=== PATIENT | female | born 1980 | race Caucasian/White ===

== ENCOUNTER → 2021-02-14 12:42 | Outpatient (CLI) | payer OTHER, SELFPAY ==
--- NOTE | ~2021-02-14 | US_ITS ---
US transvaginal DATE: 02/14/2021 13:08 INDICATION: Abnormal uterine bleeding TECHNIQUE: Real-time imaging via transvaginal approach COMPARISON: 01/16/2019 pelvic ultrasound examination FINDINGS: The uterus measures 6.3 cm height, 3.1 cm AP and 3.5 cm transverse dimension. The central e ndometrial echo complex measures 4 mm, normal. The ovaries each contain cysts, the largest on the right measuring up to 2 cm, the largest on the lef t approximately 11.8 mm. There is vascular flow to both ovaries. The right ovary measures 3.2 x 2.7 x 2.4 cm. The left ovary measures 3.4 x 1.5 x 3.3 cm. Minimal free fluid is evident in the cul-de-sac. IMPRESSION: Bilateral ovarian cysts, minimal free fluid in the cul-de-sac Reviewed, dictated and finalized at [facility]. Reviewed, dictated and finalized at location [facility].
== END ==
PROVIDERS: Visit Provider Obstetrics & Gynecology Gynecology
DX: N93.8 Other specified abnormal uterine and vaginal bleeding (principal); N83.201 Unspecified ovarian cyst, right side; N83.202 Unspecified ovarian cyst, left side
CPT/HCPCS: 76830

== ENCOUNTER 2021-02-14 14:04 | Outpatient (CLI) | payer OTHER, SELFPAY ==
--- NOTE | 2021-02-14 14:08 | ECG_ITS ---
Measurements Intervals Serafina Rate: 76 P: 58 KS: 169 QRS: 76 QRSD: 85 T: 69 QT: 380 QTc: 428 Interpretive Statements SINUS RHYTHM VENTRICULAR TRIGEMINY ABNORMAL ECG Electronically Signed On 02-14-2021 14:47:56 CDT by Chavez Lees D.O.
== END 2021-02-14 14:05 | disposition home or self-care (01) ==
PROVIDERS: PCP Internal Medicine; Visit Provider Anesthesiology
DX: Z01.818 Encounter for other preprocedural examination (principal); I10 Essential (primary) hypertension; R94.31 Abnormal electrocardiogram [ECG] [EKG]
CPT/HCPCS: 93005

== ENCOUNTER → 2021-02-21 00:09 | Outpatient (CLI) | payer OTHER, SELFPAY ==
[2021-02-21 17:44] LABS: SARS-CoV-2 RNA PCR Negative
== END ==
PROVIDERS: PCP Internal Medicine; Visit Provider Obstetrics & Gynecology Gynecology
DX: Z01.812 Encounter for preprocedural laboratory examination (principal); Z20.822 Contact with and (suspected) exposure to COVID-19
CPT/HCPCS: C9803; U0003; U0005

== ENCOUNTER 2021-02-24 01:19 | Day surgery (SDC) | payer OTHER, SELFPAY ==
[2021-02-12 15:27] VITALS: BMI 27.3
--- NOTE | 2021-02-24 07:40 | WPDHPUPDATE1 ---
History and Physical Update Update Date/Time: 02/24/21 07:40 History and Physical has been reviewed, including an updated exam of the patient. There are NO changes in the patient's condition. Risks, benefits, and alternatives have been discussed and questions answered. Patient agrees to proceed with procedure.
--- NOTE | 2021-02-24 07:40 | PM.HPGS ---
History of Present Illness History of Present Illness Consent: Risks, benefits, and alternatives have been discussed and questions answered. Patient agrees to proceed with procedure. Chief complaint: Abnormal Uterine Bleeding Narrative: Cristina Ruiz is a 40 year old female s/p endometrial ablation with prolonged spotting last 3 months. Patient with more than 10 days of bleeding per month. Recommend further work up with hysteroscopy and D&C. Risks of infection, bleeding, perforation, and inability to enter cavity discussed with patient. She agrees to proceed. Review of Systems Review of Systems: Narrative: not repeated day of surgery; patient states no changes in status [facility] Past Medical History Medical History (Updated 02/24/21 @ 08:23 by Rosa Burt MD) Anxiety Crohn's disease Eczema Hepatitis C 2018 TREATED WITH HARVONI, STATES NEG TESTS HTN (hypertension) Surgical History Surgical History (Updated 02/24/21 @ 08:23 by Rosa Burt MD) S/P endometrial ablation S/P LEEP S/P surgical removal of pilonidal cyst S/P tonsillectomy S/P tubal ligation Social History Social History Smoking status: Never smoker Substance use: never Gender identity (if verbalized by the patient): Female Spiritual care concerns: No Meds Home Medications and Allergies Home Medications Medication Instructions Recorded Confirmed Type Vitamin D2 1,000 mg PO DAILY 11/09/19 02/12/21 History ascorbic acid (vitamin C) [Vitamin 1 g PO DAILY 11/09/19 02/12/21 History C] buspirone 7.5 mg PO DAILY 11/09/19 02/12/21 History lisinopril 5 mg PO HS 11/09/19 02/12/21 History loratadine [Claritin] 10 mg PO DAILY 02/12/21 02/12/21 History Allergies Allergy/AdvReac Type Severity Reaction Status Date / Time erythromycin base AdvReac Mild Nausea Verified 11/20/19 06:45 Exam Const: General: healthy appearing and comfortable : External Female Exam: normal external appearance Speculum Exam - Vagina: normal appearance of the vagina Speculum Exam - Cervix: normal appearance of the cervix Bimanual exam- vagina & uterus: normal bimanual exam Bimanual Exam- Adnexa, other: normal adnexae Assessment and Plan Assessment and plan (1) Menorrhagia: Code(s): N92.0 - Excessive and frequent menstruation with regular cycle Status: Acute Assessment and Plan: plan to proceed with hysteroscopy with D&C
--- NOTE | 2021-02-24 09:04 | WPDANESEPPF ---
Anes - Initial Pre Proc Eval Procedure: Operation Date: 02/24/21 10:45 Proposed Procedures p Hysteroscopy Dilation and Curettage - Rosa Burt MD Date/Time: 02/24/21 09:04 Surgeon: Rosa Burt MD Pre Op Diagnosis: Abnormal Uterine Bleeding Patient Data Age: 40 Gender: F Height: 1.73 m Weight: 81.7 kg Allergies Allergy/AdvReac Type Severity Reaction Status Date / Time erythromycin base AdvReac Mild Nausea Verified 02/24/21 09:09 Home Medications Medication Instructions Recorded Confirmed Type Vitamin D2 1,000 mg PO DAILY 11/09/19 02/24/21 History ascorbic acid (vitamin C) [Vitamin 1 g PO DAILY 11/09/19 02/24/21 History C] buspirone 7.5 mg PO DAILY 11/09/19 02/24/21 History lisinopril 5 mg PO HS 11/09/19 02/24/21 History loratadine [Claritin] 10 mg PO DAILY 02/12/21 02/24/21 History Patient hx anesthesia problems: none Family hx anesthesia problems: none PMFSH Past Medical History Medical History (Updated 02/24/21 @ 08:23 by Rosa Burt MD) Anxiety Crohn's disease Eczema Hepatitis C 2018 TREATED WITH AMAYA, STATES NEG TESTS HTN (hypertension) Surgical History Surgical History (Updated 02/24/21 @ 08:23 by Rosa Burt MD) S/P endometrial ablation S/P LEEP S/P surgical removal of pilonidal cyst S/P tonsillectomy S/P tubal ligation Social History Social History Smoking status: Never smoker Substance use: never Gender identity (if verbalized by the patient): Female Spiritual care concerns: No Anes - Eval Final PreProcedure Day of Procedure 02/24/21 09:04 Patient weight: overweight Heart: regular rate and rhythm Lungs: clear to auscultation and normal air movement Airway: Mallampati scale class II Neurological: alert and oriented Last oral intake: >/= 8 hours ASA classification: III Emergent: no Anesthetic plan: proceed Anesthesia type and monitoring: general GIVS and LMA Informed Consent: The patient's anesthetic plan and its attendant risks and benefits were discussed with the patient/family/POA. Questions were solicited and answers provided to the satisfaction of the patient/family/POA.
[2021-02-24 09:26] VITALS: BP 113/78; PULSE 90; RESP 14; TEMP 36.6; O2SAT 100
[2021-02-24] MEDS: SCOPOLAMINE 1.5 MG PATCH TRANSDERM (09:48)
[2021-02-24] MEDS: LACTATED RINGERS 1,000 ML 30 ML IV CONT (09:49)
[2021-02-24] MEDS: ACETAMINOPHEN 500 MG TABLET 1000 MG PO (09:49)
[2021-02-24] MEDS: KETOROLAC 30 MG/ML VIAL (*BKC) IV PUSH (10:36)
--- NOTE | 2021-02-24 10:44 | P.OP_ITS ---
Procedure Note - Detailed Date of procedure: 02/24/21 Pre-op diagnosis: Abnormal Uterine Bleeding Post-op diagnosis: same Procedure performed: D&C hysteroscopy Description of procedure: The patient is taken to the operating room and placed under anesthesia in the dorsal lithotomy position. She was prepped and draped in the usual sterile fashion. Mcrae Helena speculum was placed in the vagina and the cervix is grasped on the anterior lip with a tenaculum. The cervix is injected in each quadrant with 1% lidocaine and the sound was attempted to be placed. There is a minimal indentation where the cervical os is located the os Finders are attempted to be used in not successful. The small dilator was attempted to be used and not successful. An 11 blade scalpel was used to kelby-cross the cervical opening. The os Finders are then used and the external os is able to be opened. The internal cervical os is also noted to be very stenotic and with difficult is dilated with Hegars. The diagnostic hysteroscope was placed and the pocket is noted to be very scarred and suspected to be a false passage. The hysteroscope was slowly removed and an additional passage was noted anterior to the current false passage. The hysteroscope was removed the sound is used and able to enter the upper passage which sounds to 7cm. The cervix was then serially dilated anteriorly using the Hegars. The diagnostic hysteroscope was replaced and this passage also appears very scarred but appears to be more likely the endometrial cavity. No abnormalities are noted other than scarring consistent with prior ablation. The hysteroscope was removed the small curette is used to angle anteriorly and curette the endometrium until a good uterine cry was noted in all areas. Minimal materials obtained consistent with the visual appearance. All instruments are removed and the patient was awakened from anesthesia taken to recovery room. Sponge, instrument, and needle counts are correct per the OR staff. Anesthesia: MAC and local Surgeon: Rosa Burt MD Estimated blood loss (mL): 5 Drains: No Packing: No Pathology: yes (endometrial curettings) Complications: No immediate complications Condition: stable Disposition: PACU Findings: external cervical stenosis and internal cervical stenosis scarred endometrium
[2021-02-24 10:47] VITALS: BP 123/76; PULSE 71; RESP 16; O2SAT 99
[2021-02-24 11:15] VITALS: BP 130/90; PULSE 80; RESP 16; O2SAT 99
[2021-02-24 11:40] VITALS: BP 125/81; PULSE 76; RESP 20
== END 2021-02-24 11:45 | disposition home or self-care (01) ==
PROVIDERS: PCP Internal Medicine; Visit Provider Obstetrics & Gynecology Gynecology
PROC: 0U5B8ZZ Destruction of Endometrium, Via Natural or Artificial Opening Endoscopic (ICD-10-PCS; CPT 58563; principal; 2021-02-24 10:45)
DX: N92.0 Excessive and frequent menstruation with regular cycle (principal); N85.8 Other specified noninflammatory disorders of uterus; F41.9 Anxiety disorder, unspecified; K50.90 Crohn's disease, unspecified, without complications; L30.9 Dermatitis, unspecified; Z86.19 Personal history of other infectious and parasitic diseases; I10 Essential (primary) hypertension
CPT/HCPCS: 58558; 88305; 93005; A9270; C9803; J1885; J2250; J2704; J3010; J7030; J7120; U0003; U0005

== ENCOUNTER → 2021-10-09 07:41 | Outpatient (CLI) | payer OTHER, SELFPAY ==
--- NOTE | ~2021-10-09 | MMUS_ITS ---
EXAMINATION: MM diagnostic bella BI w linda, US breast BI complete HISTORY: Bilateral breast lumps TECHNIQUE: ML, MLO and craniocaudal 3-D tomosynthesis images of both breasts were performed and synth etic 2-D images were generated. CAD analysis was submitted and interpreted. High resolution complete bilateral breast ultrasound including all 4 quadrants and subareolar area of was performed. COMPARISON: 12/13/2017 bilateral diagnostic mammography and limited left breast ultrasound BREAST PARENCHYMAL COMPOSITION: There are scattered areas of fibroglandular density. FINDINGS: MAMMOGRAPHIC FINDINGS: No suspicious mass or architectural distortion, malignant calcification, skin thickening or retractio n or significant new or developing density is detected. ULTRASOUND: In the right breast at 4:00 8 cm from the nipple at the area of palpable complaint of breast lump the re is a superficial approximately 4 x 6.5 x 9.1 mm parallel circumscribed hypoechoic area without int ernal vascularity or posterior shadowing. This appears benign. No suspicious mass or shadowing of either breast is detected. IMPRESSION: 1. No mammographic evidence of malignancy 2. Routine mammographic screening is recommended. BI-RADS Category 2: Benign finding(s). Reviewed, dictated and finalized at location A. IT COLLECTIONS CLERK IMPRESSION: 1. No mammographic evidence of malignancy 2. Routine mammographic screening is recommended. BI-RADS Category 2: Benign finding(s).
== END ==
PROVIDERS: PCP Internal Medicine; Visit Provider Nurse Practitioner
DX: N63.24 Unspecified lump in the left breast, lower inner quadrant (principal)
CPT/HCPCS: 76641; 77062; 77066; G0279

== ENCOUNTER 2021-10-30 07:54 | Outpatient (CLI) | payer OTHER, SELFPAY ==
--- NOTE | 2021-10-30 08:00 | ECG_ITS ---
Measurements Intervals Berry Rate: 71 P: 59 MN: 156 QRS: 76 QRSD: 78 T: 67 QT: 375 QTc: 410 Interpretive Statements SINUS RHYTHM VENTRICULAR TRIGEMINY LOW QRS VOLTAGE IN PRECORDIAL LEADS BORDERLINE R WAVE PROGRESSION, ANTERIOR LEADS ABNORMAL ECG Electronically Signed On 10-30-2021 8:22:03 PACKAGE DYER by Chavez Lees D.O.
[2021-10-30 08:50] LABS: Hematocrit 47.9 % (37.0-47.0); Hemoglobin 15.7 g/dL (12.0-15.0)
== END 2021-10-30 07:55 | disposition home or self-care (01) ==
LOC: ANHSURGERY 07:59
PROVIDERS: PCP Internal Medicine; Visit Provider Obstetrics & Gynecology Gynecology
DX: N93.9 Abnormal uterine and vaginal bleeding, unspecified (principal); I10 Essential (primary) hypertension; Z01.818 Encounter for other preprocedural examination; R94.31 Abnormal electrocardiogram [ECG] [EKG]
CPT/HCPCS: 36415; 85014; 85018; 86850; 86900; 86901; 93005

== ENCOUNTER 2021-11-04 13:57 | Observation (INO) | payer OTHER, SELFPAY ==
[2021-10-22 13:28] VITALS: BMI 26.8
--- NOTE | 2021-10-22 13:50 | PC.NURSE ---
Report to the Outpatient Waiting Room, entrance under the green pavilion located off [facility], at time 7:00 on date 11/03/21. OR Time: 9:00. - You and your visitor will be asked a series of questions to screen for COVID 19 for your protection. - A mask is required within the hospital. - Only one visitor is allowed at this time. Patient visitors will be guided where to wait when not with patient. Preoperative COVID Testing Requirements: No COVID Test needed if: (proof is required; if not received patient will have Rapid Test prior to entry) - Patient has received COVID Vaccine at least 14 days prior to procedure date or - Patient has positive COVID test result within last 90 days of surgery date. COVID Test needed if above criteria is not met If not COVID vaccinated a COVID test must be conducted within 72 hours of surgery and patient is asked to isolate self from time of testing until procedure. You will go to the [facility] for your COVID testing. The [facility] is located at the corner of [address] [facility]. You will only be called if COVID results are positive and your surgeon may reschedule your elective surgery date. Patients may have clear liquids (water, carbonated beverages, clear teas, apple juice) until 3 hours prior to surgery with a maximum of 20 ounces. - No food from midnight until time of surgery - Infants may have breast milk until 4 hours before surgery, formula 6 hours prior to surgery. - Children will be allowed to drink immediately following surgery. If applicable, please bring a bottle or sippy cup to assist with drinking. Juice, water, soda, and popsicles are readily available. For infants on formula, please bring formula the day of surgery. Pacifiers are allowed. Take the following medications with a SIP of water the morning of surgery: BUSPIRONE Medications to discontinue per physician: VITAMINS/SUPPLEMENTS Date to take last dose: 10/30/21 Please no make-up, nail vietnamese, hairspray, perfume, deodorant, or body powder the day of surgery. No jewelry (including any body piercings) or valuables the day of surgery, leave them at home. Please take a shower or bath the night before, or the morning of, surgery with an antibacterial soap. Wear comfortable, loose fitting clothing. Children are encouraged to wear pajamas. - Jewelry must be removed prior to entering the operating room. Rings and piercings that are not removed may be cut off. - The hospital will not accept responsibility for valuables. - Please leave all valuables, including medications, at home the day of surgery. If you are going home after surgery, a licensed haul driver must drive you home. - NO public transportation without another adult. - We recommend that an adult stay with you for 24 hours following discharge. - We also recommend that you do not drive, make important decision, drink alcoholic beverages, or take any drugs that were not prescribed by your health care provider for at least 24 hours after your discharge time. For Pediatric surgeries, we recommend two adults accompany the child home (only one inside the building at this time). Follow any additional instructions given to you from your surgeon. Telephone instructions given to AROLDO SCHULTZ and asked if any additional questions and then verbalized understanding. Patient advised to call surgeon office or pre surgery nurse liaison [phone] if any additional questions.
[2021-11-03] VITALS (9 sets, daily range): BP systolic 131–152; BP diastolic 77–91; PULSE 46–111; RESP 12–18; TEMP 36.1–37.4; O2SAT 97–100
--- NOTE | 2021-11-03 07:17 | WPDHPUPDATE1 ---
History and Physical Update Update Date/Time: 11/03/21 07:17 History and Physical has been reviewed, including an updated exam of the patient. There are NO changes in the patient's condition. Risks, benefits, and alternatives have been discussed and questions answered. Patient agrees to proceed with procedure.
--- NOTE | 2021-11-03 07:17 | PM.IMHP ---
H&P: HPI History of Present Illness Date/Time: 11/03/21 07:17 The patient is a 41-year-old 0 being admitted for total abdominal hysterectomy bilateral salpingo-oophorectomy secondary to menorrhagia. The patient is status post Leeann ablation and tubal ligation with minimal relief of bleeding. She has been tried on control pills since that time and has had migraine headaches since starting the control pills. Patient has decided to proceed with definitive therapy with hysterectomy. Route of surgery was discussed in detail with the patient and decision was made to proceed with total abdominal hysterectomy secondary to no descent of the cervix. Risks of infection, bleeding, injury to internal organs (bowel, bladder, ureters), DVT, and general anesthesia were reviewed. Patient voices understanding and agrees to proceed. Chief Complaint: Menorrhagia Review of Systems Review of Systems: All systems reviewed & are unremarkable except as noted in HPI and below (History of present illness) PMFSH Past Medical History Medical History (Updated 02/24/21 @ 08:23 by Rosa Burt MD) Anxiety Crohn's disease Eczema Hepatitis C 2018 TREATED WITH AMAYA, STATES NEG TESTS HTN (hypertension) Surgical History Surgical History (Updated 02/24/21 @ 08:23 by Rosa Burt MD) S/P endometrial ablation S/P LEEP S/P surgical removal of pilonidal cyst S/P tonsillectomy S/P tubal ligation Social History Social History Smoking status: Never smoker Alcohol intake: never Substance use: never Substance use type: does not use Living arrangements: with family Gender identity (if verbalized by the patient): Female Spiritual care concerns: No Meds Home Medications and Allergies Home Medications Medication Instructions Recorded Confirmed Type Vitamin D2 1,000 mg PO DAILY 11/09/19 10/22/21 History ascorbic acid (vitamin C) [Vitamin 1 g PO DAILY 11/09/19 10/22/21 History C] buspirone 7.5 mg PO DAILY 11/09/19 10/22/21 History lisinopril 5 mg PO HS 11/09/19 10/22/21 History loratadine [Claritin] 10 mg PO DAILY 02/12/21 10/22/21 History Allergies Allergy/AdvReac Type Severity Reaction Status Date / Time erythromycin base AdvReac Mild Nausea Verified 10/22/21 13:27 Exam Const: General: healthy appearing and alert Orientation/consciousness: patient oriented x3 Resp: Effort & Inspection: normal respiratory effort Auscultation: clear to auscultation bilaterally Cardio: Rate: regular rate Rhythm: regular rhythm GI: GI Palp: Yes Soft to palpation, No Tenderness to palpation present (GI) and No Palpable mass present : External Female Exam: normal external appearance Speculum Exam - Vagina: normal appearance of the vagina and normal vaginal discharge Speculum Exam - Cervix: normal appearance of the cervix Bimanual exam- vagina & uterus: uterine size normal and consistency normal Bimanual Exam- Adnexa, other: normal adnexae and No adnexal tenderness Neuro: General: patient oriented x3 Assessment and Plan Assessment and plan (1) Menorrhagia: Code(s): N92.0 - Excessive and frequent menstruation with regular cycle Status: Acute Assessment and Plan: Plan is to proceed with total abdominal hysterectomy bilateral salpingectomy.
--- NOTE | 2021-11-03 07:44 | WPDANESEPPF ---
Anes - Initial Pre Proc Eval Procedure: Operation Date: 11/03/21 09:00 Proposed Procedures p Total Abdominal Hysterectomy with Bilateral Salpingectomy - Rosa Burt MD Date/Time: 11/03/21 07:44 Surgeon: Rosa Burt MD Pre Op Diagnosis: abn uterine bleeding Patient Data Age: 41 Gender: F Height: 1.71 m Weight: 75.8 kg Allergies Allergy/AdvReac Type Severity Reaction Status Date / Time erythromycin base AdvReac Mild Nausea Verified 10/22/21 13:27 Home Medications Medication Instructions Recorded Confirmed Type Vitamin D2 1,000 mg PO DAILY 11/09/19 10/22/21 History ascorbic acid (vitamin C) [Vitamin 1 g PO DAILY 11/09/19 10/22/21 History C] buspirone 7.5 mg PO DAILY 11/09/19 10/22/21 History lisinopril 5 mg PO HS 11/09/19 10/22/21 History loratadine [Claritin] 10 mg PO DAILY 02/12/21 10/22/21 History Patient hx anesthesia problems: post op nausea/vomiting Family hx anesthesia problems: none Results Review: All pre-operative results and documents have been reviewed as part of the pre-operative evaluation. [facility] Past Medical History Medical History Anxiety Crohn's disease Eczema Hepatitis C 2018 TREATED WITH HARVONI, STATES NEG TESTS HTN (hypertension) Surgical History Surgical History S/P endometrial ablation S/P LEEP S/P surgical removal of pilonidal cyst S/P tonsillectomy S/P tubal ligation Social History Social History Smoking status: Never smoker Alcohol intake: never Substance use: never Substance use type: does not use Living arrangements: with family Gender identity (if verbalized by the patient): Female Spiritual care concerns: No Anes - Eval Final PreProcedure Day of Procedure 11/03/21 07:44 Patient weight: overweight Heart: regular rate and rhythm Lungs: clear to auscultation Airway: Mallampati scale class II Neurological: alert and oriented Last oral intake: >/= 8 hours ASA classification: III Emergent: no Anesthetic plan: proceed Anesthesia type and monitoring: general ETT and standard monitoring Results Review: All pre-operative results and documents have been reviewed as part of the pre-operative evaluation. Informed Consent: The patient's anesthetic plan and its attendant risks and benefits were discussed with the patient/family/POA. Questions were solicited and answers provided to the satisfaction of the patient/family/POA.
[2021-11-03] MEDS: ACETAMINOPHEN 500 MG TABLET 1000 MG PO (07:51)
[2021-11-03] MEDS: SCOPOLAMINE 1.5 MG PATCH TRANSDERM (07:53)
[2021-11-03] MEDS: LACTATED RINGERS 1,000 ML 30 ML IV CONT ×2 (08:05→10:19)
[2021-11-03] MEDS: KETOROLAC 15 MG/ML VIAL (*BKC) IV PUSH (08:10)
[2021-11-03] MEDS: ceFAZolin 2 GM/D5W 50 ML 2 GM/50 ML BAG IVPB (08:58)
--- NOTE | 2021-11-03 10:13 | W.PM.PROC2 ---
Procedure Note - Detailed Date of Procedure 11/03/21 Pre-op Diagnosis abn uterine bleeding Post-op Diagnosis same Procedure Performed Total abdominal hysterectomy bilateral salpingectomy Surgeon Rosa Burt MD Anesthesia general Findings Normal-appearing uterus tubes and ovaries. Evidence of prior tubal ligation. Description of Procedure The patient was taken to the operating room and placed under anesthesia in the dorsal supine position. She was prepped and draped in the usual sterile fashion. Staff in previously placed Palacio catheter under sterile conditions. Ancef was given prior to incision. A Pfannenstiel skin incision was made with a scalpel and carried down to the underlying layer of fascia which was nicked in the midline. The incision was extended laterally using Rich scissors. Bleeding vessels in the subcutaneous tissue were cauterized. The Ochsner is used to tent the fascia which was then dissected off using sharp and blunt dissection. The rectus muscles are in the midline and the peritoneum entered with a Peon. The peritoneal incision is extended with blunt traction. The Balfor is placed. The bowel was packed away using moist laparotomy sponges. The flexible center blade is placed. The uterus is grasped on the cornu with large peans. Ligaments were doubly ligated with 0 Vicryl transected and the anterior leaf of the broad ligament incised meeting in the midline the bladder was dissected off using sharp and blunt dissection. The utero-ovarian ligament is isolated and a window created in the posterior leaf of the broad ligament. The pedicle was clamped transected and suture ligated with 0 Vicryl. Then tagged for future use. The uterine vessels are clamped transected and suture ligated with 0 Vicryl. The cardinal and uterosacral ligaments are serially clamped transected and suture ligated with 0 Vicryl. The uterosacral ligaments were tagged for future use. Vaginal cuff was entered on the left while cutting the pedicle for the uterosacral ligament. The vaginal cuff is grasped with long Allis clamps and the specimen amputated with Tiburcio scissors. The vaginal cuff was then closed in a running lock suture of 0 Vicryl. Each angle was tied to the ipsilateral uterosacral ligament that is been previously tagged. One additional [id number] suture was required in the left angle. The pelvis is irrigated noted to be hemostatic. The tubes are grasped with Larry and the mesiosalpinx clamped with Z clamp. The tube is excised and the pedicle tied off using 0 Vicryl. Good hemostasis is noted. All instruments and sponges are removed. Sponge, needle and instrument counts are correct per the OR staff. The fascia was closed using 0 Vicryl in a running fashion subcutaneous tissue was irrigated made hemostatic using Bovie cautery. The skin incision is closed using 4-0 Vicryl in a subcuticular fashion. Dermaflex was placed over the incision. Patient is awakened from anesthesia and taken to recovery in stable condition. Estimated Blood Loss 100 Drains Yes (Palacio) Packing No Pathology yes (Uterus and tubes) Complications No immediate complications Condition stable Disposition PACU
--- NOTE | 2021-11-03 10:21 | PM.DS ---
DS: Admitting Diagnosis Discharge Date 11/05/21 Admitting Diagnosis Menorrhagia DS: Discharge Diagnosis Discharge Diagnosis (1) Status post total abdominal hysterectomy: Code(s): Z90.710 - Acquired absence of both cervix and uterus Status: Acute DS: Summary Hospital Course Hospital Course: The patient at the time of discharge she is tolerating a regular diet, ambulating, and voiding. Status at Discharge Functional status at discharge: independent ambulation Overall status at discharge: patient is progressing back to baseline Time Spent with Patient Time attestation: Total time spent providing and/or coordinating discharge services: Time spent: Less than 30 minutes DS: Data Data Completed and Pending Pending studies at discharge: Pending at discharge 11/03/21 10:00 Surgical [PTH] Routine Discharge Plan Discharge Patient Disposition: Home, Self-Care Stand Alone Forms: General Discharge Instructions Follow-up/Referrals: Rosa Burt MD [Physician] - Discharge Medications: Continued lisinopril 10 mg Tablet 5 mg PO HS RF: 0 buspirone 7.5 mg Tablet 7.5 mg PO DAILY RF: 0 ascorbic acid (vitamin C) [Vitamin C] 1,000 mg Tablet 1 g PO DAILY RF: 0 Vitamin D2 1,000 mg PO DAILY RF: 0 loratadine [Claritin] 10 mg Tablet 10 mg PO DAILY RF: 0
[2021-11-03] MEDS: fentaNYL CITRATE INJ (*CRX) 100 MCG/2 ML VIAL 25 MCG IV PUSH ×8 (10:26→11:11)
--- NOTE | 2021-11-03 11:22 | PC.NURSE ---
This patient, Cristina Ruiz, was received from PACU per bed to room 280. Patient/family oriented to unit policies and routines
[2021-11-03] MEDS: DEXTROSE 5%/LACTATED RINGERS 1,000 ML 125 ML IV CONT ×2 (12:27→20:15)
[2021-11-03] MEDS: KETOROLAC 30 MG/ML VIAL (*BKC) IV PUSH ×2 (12:27→19:59)
[2021-11-03] MEDS: FENTANYL 600MCG/NS30MLPCA(*CRX 600 MCG/30 ML PCA.VIAL IV CONT (13:32)
[2021-11-03] MEDS: lisinopriL 5 MG TABLET PO (19:58)
[2021-11-04 00:20] VITALS: BP 133/84; PULSE 100; RESP 16; TEMP 37.1
[2021-11-04 04:00] VITALS: BP 115/65; PULSE 95; RESP 16; TEMP 36.8
[2021-11-04 05:33] LABS: Basophils Percent Auto 0.1 % (0.2-1.2); Eosinophils Percent Auto 0.1 % (0-4.4); Hematocrit 35.3 % (37.0-47.0); Hemoglobin 11.8 g/dL (12.0-15.0); Immature Granulocyte Absolute 0.06 K/mm3 (0.00-0.031); Immature Granulocyte Percent A 0.4 % (0-0.5); Lymphocytes Absolute Auto 2.41 K/mm3 (0.9-3.2); Lymphocytes Percent Auto 15.9 % (18.3-44.2); Mean Corpuscular HGB Conc 33.4 g/dl (32-36); Mean Corpuscular Hemoglobin 30.1 pg (26-34); Mean Corpuscular Volume 90.1 fl (80-100); Mean Platelet Volume 9.8 fl (7.4-10.4); Monocytes Absolute Auto 1.1 K/mm3 (0.1-0.6); Monocytes Percent Auto 7.3 % (2.6-8.5); Neutrophils Absolute Auto 11.6 K/mm3 (1.3-6.7); Neutrophils Percent Auto 76.2 % (45.5-73.1); Platelet Count Result 370 k/mm3 (150-375); Red Blood Count 3.92 M/mm3 (4.2-5.4); White Blood Count 15.2 K/mm3 (4.5-10.0)
[2021-11-04] MEDS: busPIRone HCL 2.5 MG, busPIRone HCL 5 MG 7.5 MG PO (07:23)
[2021-11-04] MEDS: LORATADINE 10 MG TABLET PO (07:23)
[2021-11-04] MEDS: HYDROcodone/acetaminophen (*CRX) 5-325 MG TABLET 1 TAB PO ×3 (07:24→16:26)
[2021-11-04] MEDS: KETOROLAC 30 MG/ML VIAL (*BKC) IV PUSH (07:29)
--- NOTE | 2021-11-04 07:33 | PM.GYNPNOP ---
DYER ASSISTANT - A/P Postoperative Procedures: Procedures Operation Date: 11/03/21 09:00 Actual Procedure Side Surgeon p Total Abdominal Hysterectomy with Bilateral Salpingectomy Bilateral Rosa Burt MD Postoperative day: 1 Postoperative status: doing well Postoperative plan: routine post-op care Time Spent With Patient Time: Total time spent is greater than 50% in coordination of care (as documented) at patient's floor/unit and/or counseling patient: Time with patient: less than 15 minutes DYER ASSISTANT- PN:Subj Post-Op Subjective Date/time seen: 11/04/21 07:33 Subjective: patient reports feeling better, patient has no complaints and pain is well controlled Exam Narrative: inc c/d/i bruising around it GI: GI Palp: Yes Soft to palpation and No Tenderness to palpation present (GI) DYER ASSISTANT - PN: Obj Data Vital Signs Vital Signs: Vital Signs - 24 hr 11/03/21 10:19 11/03/21 10:30 11/03/21 10:45 Temperature 96.9 F L Pulse Rate 71 54 L 58 L Respiratory Rate 12 14 12 Blood Pressure 149/82 H 143/85 H 152/77 H Pulse Oximetry 100 100 100 11/03/21 11:00 11/03/21 11:15 11/03/21 11:25 Temperature 97.6 F Pulse Rate 66 59 L 72 Respiratory Rate 12 12 18 Blood Pressure 152/85 H 138/86 134/82 Pulse Oximetry 98 97 100 11/03/21 16:10 11/03/21 19:55 11/04/21 00:20 Temperature 99.3 F 99.0 F 98.8 F Pulse Rate 90 111 H 100 Respiratory Rate 18 16 16 Blood Pressure 138/78 139/85 133/84 Pulse Oximetry 99 98 11/04/21 04:00 Temperature 98.2 F Pulse Rate 95 Respiratory Rate 16 Blood Pressure 115/65 Pulse Oximetry Intake/Output Intake/Output: Intake & Output 11/01/21 11/02/21 11/03/21 11/04/21 23:59 23:59 23:59 23:59 Intake Total 2161.3 516.7 Output Total 1460 1150 Balance 701.3 -633.3 Meds/Results Medications: Active Medications Generic Name Dose Route Start Last Admin Trade Name Freq PRN Reason Stop Dose Admin Hydrocodone Bitart/Acetaminophen 1 tab 11/03/21 11:18 Hydrocodone/Acetaminophen (*Crx) 5-325 Mg Tablet PO Q3H PRN Pain Rated 5 or Less Buspirone HCl 2.5 mg/ 7.5 mg 11/04/21 09:00 Buspirone HCl 5 mg PO DAILY HOLLIE Buspirone HCl 3.75 mg 11/03/21 21:00 Buspirone Hcl 2.5 Mg Tablet PO HS HOLLIE Ketorolac Tromethamine 30 mg 11/03/21 11:18 11/03/21 19:59 Ketorolac 30 Mg/Ml Vial (*Bkc) IV PUSH 11/08/21 11:17 30 mg Q6H PRN Administration Pain Rated 4-6 Lisinopril 5 mg 11/03/21 21:00 11/03/21 19:58 Lisinopril 5 Mg Tablet PO 5 mg HS HOLLIE Administration Loratadine 10 mg 11/04/21 09:00 Loratadine 10 Mg Tablet PO DAILY COUNT INCLUDES THE [facility] Non-Formulary Medication 7.5 mg 11/04/21 09:00 Buspirone PO 12/04/21 08:59 DAILY HOLLIE Ondansetron HCl 4 mg 11/03/21 11:18 Ondansetron Inj 4 Mg/2 Ml Vial IV PUSH Q6H PRN Nausea Labs CBC & Chem 7: 11/04/21 04:01 Labs: Laboratory Results - last 24 hr 11/04/21 04:01 WBC 15.2 H RBC 3.92 L Hgb 11.8 L D Hct 35.3 L MCV 90.1 MCH 30.1 MCHC 33.4 RDW 13.0 Plt Count 370 MPV 9.8 Immature Gran % (Auto) 0.4 Neut % (Auto) 76.2 H Lymph % (Auto) 15.9 L Harlan % (Auto) 7.3 Eos % (Auto) 0.1 Baso % (Auto) 0.1 L Lymph # (Auto) 2.41 Harlan # (Auto) 1.1 H Eos # (Auto) 0.0 Baso # (Auto) 0.0 Abs Immat Gran (auto) 0.06 H Absolute Neuts (auto) 11.6 H Absolute Nucleated RBC 0.0 Nucleated RBC % 0.0
[2021-11-04 08:40] VITALS: BP 120/57; PULSE 98; RESP 18; TEMP 36.8; O2SAT 96
[2021-11-04] MEDS: IBUPROFEN 600 MG TABLET PO ×2 (14:25→20:10)
--- NOTE | 2021-11-04 17:08 | PHAR ---
Home medication identified in pharmacy and returned to OB2 unit. Buspar 7.5mg tablets
[2021-11-04] MEDS: lisinopriL 5 MG TABLET PO (20:09)
[2021-11-04 20:10] VITALS: BP 122/61; PULSE 77; RESP 16; TEMP 36.6
[2021-11-05] MEDS: HYDROcodone/acetaminophen (*CRX) 5-325 MG TABLET 1 TAB PO ×2 (03:36→08:10)
[2021-11-05 07:40] VITALS: BP 114/61; PULSE 83; RESP 18; TEMP 36.7; O2SAT 100
[2021-11-05] MEDS: LORATADINE 10 MG TABLET PO (08:09)
[2021-11-05] MEDS: IBUPROFEN 600 MG TABLET PO (08:11)
== END 2021-11-05 10:38 | disposition home or self-care (01) ==
LOC: ANHSURGERY 13:58 → ANHOB2 11-05 08:27
PROVIDERS: Admitting Provider Obstetrics & Gynecology Gynecology; PCP Internal Medicine; Visit Provider Obstetrics & Gynecology
PROC: 0UT94ZZ Resection of Uterus, Percutaneous Endoscopic Approach (ICD-10-PCS; CPT 58150; principal; 2021-11-03 09:00)
DX: N92.0 Excessive and frequent menstruation with regular cycle (principal); D25.2 Subserosal leiomyoma of uterus
CPT/HCPCS: 58150; 36415; 85014; 85018; 85025; 86850; 86900; 86901; 88307; 93005; 99199; A9270; G0378; J0690; J1100; J1885; J2250; J2405; J2704; J2710; J3010; J7120; J7121

== ENCOUNTER 2023-01-19 18:04 | Outpatient (CLI) | payer OTHER, SELFPAY ==
[2023-01-19 18:16] LABS: Add Urine Microscopic? YES; Appearance Urine Clear (Clear); Bilirubin Urine Negative (Negative); Blood Urine Negative (Negative); Color Urine Light Yellow (Yellow); Glucose Urine UA Negative (Negative); Ketones Urine Trace (Negative); Leukocyte Esterase Ur Trace LEU/UL (Negative); Nitrate Urine Negative (Negative); Protein Urine Negative (Negative); Specific Grav Ur 1.015 (1.010-1.020); Urobilinogen Urine 0.2 mg/dL (0.2-1.0)
[2023-01-19 18:27] LABS: Bacteria Urine Trace /hpf; RBC Urine 0-2 /hpf (0-2); Squamous Epithelial Cell Urine Few /hpf (Few); WBC Urine 0-3 /hpf (0-3)
== END 2023-01-19 18:05 | disposition home or self-care (01) ==
LOC: CHSLAB 18:06
PROVIDERS: PCP Internal Medicine; Visit Provider Internal Medicine
DX: N39.0 Urinary tract infection, site not specified (principal)
CPT/HCPCS: 81001

== ENCOUNTER → 2023-09-17 11:57 | Outpatient (CLI) | payer OTHER, SELFPAY ==
--- NOTE | ~2023-09-17 | MM_ITS ---
EXAMINATION: MM screening bella BI w linda HISTORY: Screening TECHNIQUE: Craniocaudal and mediolateral oblique 3-D tomosynthesis images were obtained and synthetic 2-D images were generated. CAD analysis was submitted and interpreted. COMPARISON: Comparison to multiple prior studies sequentially, with oldest reviewed study dated 12/13. BREAST PARENCHYMAL COMPOSITION: There are scattered areas of fibroglandular density. FINDINGS: There is no evidence of suspicious mass, calcification, or architectural distortion to sugg est malignancy in either breast. There has been no suspicious interval change. IMPRESSION: 1. No mammographic evidence of malignancy. 2. Recommend routine screening mammography in one year. BI-RADS Category 1: Negative Reviewed, dictated and finalized at location A.
== END ==
PROVIDERS: PCP Advanced Practice Midwife; Visit Provider Advanced Practice Midwife
DX: Z12.31 Encounter for screening mammogram for malignant neoplasm of breast (principal)
CPT/HCPCS: 77063; 77067

== ENCOUNTER 2024-01-17 17:54 | Emergency (ER) | payer OTHER, SELFPAY ==
--- NOTE | ~2024-01-17 | XR_ITS ---
EXAM: XR ankle RT min 3V DATE: 01/17/2024 18:25 HISTORY: TABLE FELL ON TOP OF ANKLE 01/17/24. SOME SWELLING. . COMPARISON: None available. FINDINGS: Normal mineralization. No fracture or dislocation. No lytic or blastic lesion. Joint space s are maintained. Achilles and plantar enthesopathy No erosion or periosteal change. Lateral soft tis hi swelling. IMPRESSION: No acute osseous finding in the right ankle. Reviewed, dictated and finalized at location K. C IRON WORKER
[2024-01-17 18:08] VITALS: BP 137/77; PULSE 96; RESP 20; TEMP 37.2; O2SAT 100
--- NOTE | 2024-01-17 18:11 | ED.LOWEXIN ---
HPI - Extremity Injury (Lower) General Chief Complaint: Extremity Injury, Lower Stated Complaint: Right Ankle Injury Source: patient Mode of arrival: ambulatory Limitations: no limitations History of Present Illness HPI Narrative: 43-year-old female presenting for complaint of right posterior ankle pain and swelling after injury today. She states a large metal/plastic table fell when she had her back turned. The table slid down the ankle. Injury occurred 0800. Reports pain with ambulating. Denies decreased ROM, numbness, tingling or weakness of the foot. Not taking anything for pain. Related Data Home Medications Medication Instructions Recorded Confirmed buspirone 7.5 mg tablet 7.5 mg PO DAILY 11/09/19 01/17/24 lisinopril 10 mg tablet 5 mg PO HS 11/09/19 01/17/24 Allergies Allergy/AdvReac Type Severity Reaction Status Date / Time erythromycin base AdvReac Mild Nausea Verified 11/03/21 07:46 Review of Systems Review of Systems: CONSTITUTIONAL: Denies body aches, fever, chills CARDIOVASCULAR: Denies chest pain, palpitations, or edema. RESPIRATORY: Denies cough or dyspnea. SKIN: reports right ankle abrasion MUSCULOSKELETAL: reports right ankle swelling Denies back pain, or myalgia. NEUROLOGIC: Denies headache, numbness, tingling, or weakness. All systems reviewed & are unremarkable except as noted in HPI and below PMFSH Past Medical History Medical History Anxiety Crohn's disease Eczema Hepatitis C 2018 TREATED WITH HARVONI, STATES NEG TESTS HTN (hypertension) Surgical History Surgical History S/P endometrial ablation S/P LEEP S/P surgical removal of pilonidal cyst S/P tonsillectomy S/P tubal ligation Social History Social History Smoking status: Never smoker Alcohol intake: never Substance use: never Substance use type: does not use Living arrangements: with family Gender identity (if verbalized by the patient): Female Spiritual care concerns: No Comments At time of signature, I have reviewed and agree with nursing past medical, surgical, social and family history unless otherwise noted. Please see nursing chart for further information. There is no relevant family history pertinent to the presenting complaint Exam Narrative: GENERAL: Well-appearing,in no acute distress. CHEST: Speaks in full sentences. No respiratory distress. HEART: Regular rate and rhythm. Normal and equal peripheral pulses. EXTREMITIES: Right foot has normal strength and sensation, slightly limited range of motion with flexion/extension/rotation to ankle due to pain. Moderate right lateral ankle swelling, mild bruising. No point tenderness to malleolus. No obvious deformity; alignment normal, pulse palpable and equal bilaterally, skin warm, dry, pink. Capillary refill less than 3 seconds. SKIN: Warm, dry [id number]. Posterior right ankle abrasion NEURO: Alert and oriented x3. Course Course Emergency Course: Patient is aware of diagnosis, understands and agrees to treatment plan. Anticipatory guidance given. Patient agrees to follow-up as directed and is aware of reasons to seek care at the emergency department. Portions of this record may have been created with voice recognition software Level of Care: Express Care Visit Vital Signs Vital signs: Vital Signs Temperature 99.0 F 01/17/24 18:08 Pulse Rate 96 01/17/24 18:08 Respiratory Rate 20 01/17/24 18:08 Blood Pressure 137/77 01/17/24 18:08 Pulse Oximetry 100 01/17/24 18:08 Oxygen Delivery Room Air 01/17/24 18:08 Temperature 99.0 F 01/17/24 18:13 Pulse Rate 96 01/17/24 18:13 Respiratory Rate 20 01/17/24 18:13 Blood Pressure 137/77 01/17/24 18:13 Pulse Oximetry 100 01/17/24 18:13 Oxygen Delivery Room Air 01/17/24 18:13 Rev
[2024-01-17 18:13] VITALS: BP 137/77; PULSE 96; RESP 20; TEMP 37.2; O2SAT 100
== END 2024-01-17 19:17 | disposition home or self-care (01) ==
PROVIDERS: Emergency Provider Nurse Practitioner Family; PCP Internal Medicine
DX: S90.511A Abrasion, right ankle, initial encounter (principal); W20.8XXA Other cause of strike by thrown, projected or falling object, initial encounter; K50.90 Crohn's disease, unspecified, without complications; I10 Essential (primary) hypertension; F41.9 Anxiety disorder, unspecified
CPT/HCPCS: 73610; 99213; G0463

== ENCOUNTER 2024-09-20 13:42 | Outpatient (CLI) | payer OTHER, SELFPAY ==
--- NOTE | ~2024-09-20 | MM_ITS ---
EXAMINATION: MM screening bella BI w linda HISTORY: Screening TECHNIQUE: Craniocaudal and mediolateral oblique 3-D tomosynthesis images were obtained and synthetic 2-D images were generated. CAD analysis was submitted and interpreted. COMPARISON: Comparison to multiple prior studies sequentially, with oldest reviewed study dated 12/13. BREAST PARENCHYMAL COMPOSITION: Not dense: There are scattered areas of fibroglandular density. FINDINGS: There is no evidence of suspicious mass, calcification, or architectural distortion to sugg est malignancy in either breast. There has been no suspicious interval change. IMPRESSION: 1. No mammographic evidence of malignancy. 2. Recommend routine screening mammography in one year. BI-RADS Category 1: Negative Reviewed, dictated and finalized at location B.
== END 2024-09-20 13:43 | disposition home or self-care (01) ==
LOC: CHSIMG 13:43
PROVIDERS: PCP Internal Medicine; Visit Provider Obstetrics & Gynecology Gynecology
DX: Z12.31 Encounter for screening mammogram for malignant neoplasm of breast (principal)
CPT/HCPCS: 77063; 77067

== ENCOUNTER 2025-09-25 07:56 | Outpatient (CLI) | payer OTHER, SELFPAY ==
--- NOTE | ~2025-09-25 | MM_ITS ---
EXAMINATION: MM screening [facility] BI [facility] HISTORY: Screening TECHNIQUE: Craniocaudal and mediolateral oblique 3-D tomosynthesis images were obtained and synthetic 2-D images were generated. CAD analysis was submitted and interpreted. COMPARISON: Comparison to multiple prior studies sequentially, with oldest reviewed study dated 12/13/2017. BREAST PARENCHYMAL COMPOSITION: Not dense: There are scattered areas of fibroglandular density. FINDINGS: There is no evidence of suspicious mass, calcification, or architectural distortion to suggest malignancy in either breast. There has been no suspicious interval change. IMPRESSION: 1. No mammographic evidence of malignancy. 2. Recommend routine screening mammography in one year. BI-RADS Category 1: Negative Reviewed, dictated and finalized at location B.
--- OUTSIDE RECORDS SUMMARY | 2025-09-25 08:05 | XMS_ITS | Clinical Summary ---
Author Organization [facility] Address [address] [place] [address] Phone Care Team Providers Care Incinerator Plant General Supervisor Name Role Phone Cedric Dowd MD Primary Care Provider [phone] Allergies No known active allergies Medications busPIRone HCl 7.5 MG Tablet TAKE 1 TABLET BY MOUTH IN THE MORNING AND 1/2 TABLET BY MOUTH IN THE EVENING 10/11/2020 Active lisinopril (PRINIVIL, ZESTRIL) 5 MG Tablet Take 5 mg by mouth daily. 12/16/2020 Active PARoxetine (PAXIL) 10 MG Tablet Take 10 mg by mouth daily. 12/18/2020 Active Active Problems No known active problems Social History Tobacco Use Types Packs/Day Years Used Date Smoking Tobacco: Never Smokeless Tobacco: Never Comments No Sex and Gender Information Value Date Recorded Sex Assigned at Not on file Legal Sex Female 10:51 AM UNATTENDED GROUND SENSOR SPECIALIST Gender Identity Not on file Sexual Orientation Not on file Last Filed Vital Signs Vital Sign Reading Time Taken Comments Blood Pressure 110/70 12/25/2020 11:39 AM UNATTENDED GROUND SENSOR SPECIALIST Pulse 90 12/25/2020 11:39 AM UNATTENDED GROUND SENSOR SPECIALIST Temperature 36.9 C (98.4 F) 12/25/2020 11:39 AM UNATTENDED GROUND SENSOR SPECIALIST Respiratory Rate 16 12/25/2020 11:39 AM UNATTENDED GROUND SENSOR SPECIALIST Oxygen Saturation 98% 12/25/2020 11:39 AM UNATTENDED GROUND SENSOR SPECIALIST Inhaled Oxygen Concentration - - Weight 83 kg (183 lb) 12/25/2020 11:39 AM UNATTENDED GROUND SENSOR SPECIALIST Height - - Body Mass Index - - Plan of Treatment Health Maintenance Due Date Last Done Comments Hepatitis C Virus (HCV) Screening 1982 TdaP Immunization 1982 Hepatitis B Immunization (1 of 3 - 19+ 3-dose series) 2001 Human Papillomavirus (HPV) Immunization (1 - 3-dose SCDM series) 2009 HPV/Cotest 2012 Cervical Cancer Screening (CCS) 11/18/2020 Pap Smear 11/18/2020 11/18/2017 Influenza Immunization (#1) 2025 SARS-COV-2 Immunization ( season) 2025 02/15/2021, 01/18/2021 Respiratory Syncytial Virus (RSV) Immunization (Adult) (1 - 1-dose 75+ series) 2057 Meningococcal Immunization (ACWY) Aged Out No longer eligible b ased on patient's age to complete this topic Pneumococcal Immunization Combined Aged Out No longer eligible b ased on patient's age to complete this topic Rotavirus Immunization Aged Out No lo nger eligible based on patient's age to complete this topic Care Teams Incinerator Plant General Supervisor Relationship Specialty Start Date End Date Cedric Dowd MD [address] [place], [place] [id number] PCP - General Internal Medicine 12/25/20
--- OUTSIDE RECORDS SUMMARY | 2025-09-25 08:05 | XMS_ITS | Clinical Summary ---
Author Organization [facility] [employer] Address [address] [place] [address] Care Team Providers Care Wind Up Operator Name Role Phone Cedric Dowd MD Primary Care Provider [phone] Cedric Dowd MD Unavailable [phone] Source Comments [facility],non-owned Affiliates and Associated Physician Practices is amultiple site organization consisting of ambulatory clinics and hospital sitesin [place], [place], [place] and [place]. This disclosure is being madepursuant to the Care Everywhere program and may not contain all information available regarding this patient. Last updated 18.[facility] [employer] Allergies No known active allergies Medications * Be aware that medications may not be up to date on this document. Alwaysverify current medications with the patient. busPIRone (BUSPAR) 7.5 MG tablet 2 times daily 1 tab every morning and 1/2 tab every evening 9 Active CLOTRIMAZOLE-BE TAMETHASONE EX by Apply externally route 2 times daily as needed Active Digestive Enzymes (DIGESTIVE ENZYME PO) Take by mouth once daily as needed Active Vitamin D3 (CHOLECALCIFERO L) 2000 UNITS capsule Take 2,000 Units by mouth once daily Active Pseudoephedrine -Naproxen Na (ALEVE-D SINUS & COLD PO) Take by mouth 2 times daily as needed Active Acetaminophen-C aff-Pyrilamine (MENSTRUAL COMPLETE PO) Take by mouth once daily as needed Active simethicone (GAS RELIEF) 180 MG capsule Take 180 mg by mouth 4 times daily as needed after meals/at bedtime for Gas Pain Active Aspirin-Acetami nophen-Caffeine (EXCEDRIN EXTRA STRENGTH PO) Take by mouth 2 times daily as needed Active diphenhydrAMINE HCl, Sleep, (ZZZQUIL PO) Take by mouth nightly as needed Active hydrocortisone (HYTONE) 1 % cream Apply to affected area 2 times daily as needed Active levonorgestrel (MIRENA, 52 MG,) 20 MCG/24HR IUD 1 device by Intrauterine route as directed Active Other as needed MUSCLE FREEZE, 75 MG HEMP EXTRACT Active lisinopril (PRINIVIL; ZESTRIL) 10 MG tablet TK 1 T PO D 1 9 Active Active Problems Problem Noted Date Diagnosed Date Chronic hepatitis C without hepatic coma 019 Overview (03/28/2019): 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 03/27/19 Fibroscan CAP 238, E 5.6 kPa Crohn's disease 07/26/2015 Overview (02/14/2019): Overview: Crohn disease Family History Medical History Relation Name Comments Ulcerative Colitis Father Diabetes - Type 2 Mother Other - Syndrome Sister IBS Relation Name Status Comments Father Mother Sister Social History Tobacco Use Types Packs/Day Years Used Date Smoking Tobacco: Never Smokeless Tobacco: Never Alcohol Use Standard Drinks/Week Comments Not Currently 0 (1 standard drink = 0.6 oz pur e alcohol) 1 mixed drink 2-3 times/year Comments No Sex and Gender Information Value Date Recorded Sex Assigned at Not on file Legal Sex Female 4:09 AM CDT Gender Identity Not on file Sexual Orientation Not on file Last Filed Vital Signs Vital Sign Reading Time Taken Comments Blood Pressure 129/90 09/29/2019 8:01 AM CDT Pulse 94 09/29/2019 8:01 AM CDT Temperature 36.6 C (97.9 F) 09/29/2019 8:01 AM CDT Respiratory Rate 20 06/09/2019 11:2 4 AM CDT Oxygen Saturation 100% 06/09/2019 11: 24 AM CDT Inhaled Oxygen Concentration - - Weight 80.6 kg (177 lb 12.8 oz) 09/29/2019 8:01 AM CDT Height 171.5 cm (5' 7.5) 09/29/2019 8:01 AM CDT Body Mass Index 27.44 09/29/2019 8:01 AM CDT Plan of Treatment Health Maintenance Due Date Last Done Comments MAMMOGRAM 1982 HIV SCREENING 1997 DTAP/TDAP/TD VACCINES (1 - Tdap) 2001 HEPATITIS B VACCINE (1 of 3 - 19+ 3-dose series) 2001 HPV VACCINE (1 - 3-dose SCDM series) 2009 LIPID TESTING 01/07/2024 01/07/2019 DEPRESSION SCREENING 11/29/2024 COVID-19 VACCINE (1 - season) 2025 INFLUENZA VACCINE (#1) 2025 07/26/2015, 2013 ZOSTER VACCINE (1 of 2) 2032 HEPATITIS C SCREENING Completed 09/29/2019 , 09/20/2019, 06/23/2019, Additional history exists HIB VACCINE Aged Out No longer eligi ble based on patient's age to complete this topic MENINGOCOCCAL (Group B) VACCINE SHARED DECISION-MAKING Aged Out No longer eligible based on patient's age to complete this topic MENINGOCOCCAL GROUPS A/C/Y/W VACCINE Aged Out No longer eligible based on patient's age to complete this topic PNEUMOCOCCAL VACCINE Aged Out No long er eligible based on patient's age to complete this topic Goals Goal Patient Goal Type Associated Problems Recent Progress Patient-Stated? Author Medication Management General On track( 019 7:59 AM CDT) Ju Cheney, RN Note: Expected end date: ongoing Interventions: Take all medications as prescribed Complete Hepatitis C therapy as prescribed Let your doctor know right away about any changes in your medications Make sure to request a refill of your medication at least one week prior to your last dose Procedures Procedure Name Priority Date/Time Associated Diagnosis Comments HEPATITIS C RNA QUANTITATIVE 09/20/2019 4:37 PM CDT LIPID PROFILE (EXTERAL RESULT ENTRY) Routine 01/07/2019 from Last 3 Months or Most Recently Relevant to Health Maintenance Results * HEPATITIS C RNA QUANTITATIVE (09/20/2019 4:37 PM CDT) Hepatitis C Virus RNA, Quantitative Real Time PCR <15 NOT DETECTED NOT DETECTED IU/mL [employer] Hepatitis C Virus RNA, Quantitative Real Time PCR <1.18 NOT DETECTED NOT DETECTED Log IU/mL [employer] Comment: This test was performed using Real-Time Polymerase Chain Reaction. Reportable Range: 15 IU/mL to 100,000,000 IU/mL (1.18 Log IU/mL to 8.00 Log IU/mL). The analytical performance characteristics of this assay have been determined by [employer]. The modifications have not been cleared or approved by the FDA. This assay has been validated pursuant to the CLIA regulations and is used for clinical purposes. For more information on this test, go to: http://education.Shout/faq/LAM80s8 (This link is being provided for informational/ educational purposes only.) Test Performed at: [facility] [id number] [place] [address] VIOLETA SWAN DO,MPH 09/20/2019 4:37 PM CDT 09/20/2019 4:37 PM CDT Miri Krueger APRN-CAMPAIGN SPECIALIST LAB - CHEMISTRY JASON GARCIA Final Result [facility] [id number] [place] [address] * LIPID PROFILE (EXTERAL RESULT ENTRY) (01/07/2019) Cholesterol (EXTERNAL RESULT) 105 0 - 200 mg/dL Triglycerides (EXTERNAL RESULT) 31 0 - 150 mg/dL HDL (EXTERNAL RESULT) 65 >50 mg/dL LDL (EXTERNAL RESULT) 31 0 - 100 mg/dL VLDL (EXTERNAL RESULT) mg/dL Chol HDL Ratio (External Result) 1.6 0.0 - 5.0 Blood BLOOD SPECIMEN / Unknown 01/07/2019 Historical Provider LAB - CHEMISTRY ORDERABLE S Final Result from Last 3 Months or Most Recently Relevant to Health Maintenance Insurance * Guarantor: CRISTINA SCHULTZ Account Type Relation to Patient Date of Phone Billing Address Personal/Family [address] [facility] [employer] Member Subscriber Plan / Payer (Ef fective 2018-Present) Name:Cristina Schultz Relation to Subscriber:Spouse Name:RANJIT SCHULTZ Subscriber ID:Not on file Payer ID:[id number] (NAIC) Type:HMO Address: [address] [facility] Member Subscriber Plan / Payer (Ef fective 2018-Present) Name:Cristina Schultz Relation to Subscriber:Spouse Name:RANJIT SCHULTZ Subscriber ID:Not on file Payer ID:[id number] (NA) Type:HMO Address: [address] [facility] Member Subscriber Plan / Payer (Ef fective 2018-Present) Name:Cristina Schultz Relation to Subscriber:Spouse Name:RANJIT SCHULTZ Subscriber ID:Not on file Payer ID:[id number] ([facility]) Type:HMO Address: [address] [facility] Member Subscriber Plan / Payer (Ef fective 2018-Present) Name:Cristina Schultz Relation to Subscriber:Spouse Name:RANJIT SCHULTZ Subscriber ID:Not on file Payer ID:[id number] ([facility]) Type:HMO Address: [address] [facility] Member Subscriber Plan / Payer (Ef fective 2018-Present) Name:Cristina Schultz Relation to Subscriber:Spouse Name:RANJIT SCHULTZ Subscriber ID:Not on file Payer ID:[id number] ([facility]) Type:HMO Address: [address] [facility] Member Subscriber Plan / Payer (Ef fective 2018-Present) Name:Cristina Schultz Relation to Subscriber:Spouse Name:RANJIT SCHULTZ Subscriber ID:Not on file Payer ID:[id number] ([facility]) Type:HMO Address: [address] [facility] HE[facility] CARE Member Subscriber Plan / Payer (Ef fective 2018-Present) Name:Cristina Schultz Relation to Subscriber:Spouse Name:RANJIT SCHULTZ Subscriber ID:Not on file Payer ID:[id number] ([facility]) Type:HMO Address: [address] [facility] Member Subscriber Plan / Payer (Ef fective 2018-Present) Name:Cristina Schultz Relation to Subscriber:Spouse Name:RANJIT SCHULTZ Subscriber ID:Not on file Payer ID:[id number] ([facility]) Type:HMO Address: [address] [facility] Member Subscriber Plan / Payer (Ef fective 2018-Present) Name:Cristina Schultz Relation to Subscriber:Spouse Name:RANJIT SCHULTZ Subscriber ID:Not on file Payer ID:[id number] (NAIC) Type:O Address: [address] [facility] Member Subscriber Plan / Payer ( fective 2018-Present) Name:Cristina Schultz Relation to Subscriber:Spouse Name:RANJIT SCHULTZ Subscriber ID:Not on file Payer ID:[id number] (NAIC) Type:[employer] Address: [address] [facility] Care Teams Wind Up Operator Relationship Specialty Start Date End Date Cedric Dowd MD [address] [place] [address] PCP - General 04/05/19 Cedric Dowd MD [address] [place] [address] Internal Medicine 02/16/19
--- OUTSIDE RECORDS SUMMARY | 2025-09-25 08:05 | XMS_ITS | Clinical Summary ---
Author Organization [facility] Address [address] [place] [id number] Care Team Providers Care Chef Name Role Phone Cedric Dowd MD Primary Care Provider [phone] Social History Tobacco Use Types Packs/Day Years Used Date Smoking Tobacco: Never Assessed Comments Unknown Sex and Gender Information Value Date Recorded Sex Assigned at Not on file Legal Sex Female 7:29 PM CDT Gender Identity Not on file Sexual Orientation Not on file Plan of Treatment Health Maintenance Due Date Last Done Comments Annual Physical 1985 Hepatitis C 2000 DTaP, Tdap and Td Vaccines ( 1 - Tdap) 2001 Hepatitis B Vaccines (1 of 3 - 19+ 3-dose series) 2001 HPV Vaccines (1 - 3-dose SCD M series) 2009 Cervical Cancer Screening Pa p Smear (Age 30 to 64) Every 3 Years 11/18/2020 11/18/2017 Mammogram Screening 2022 Cervical Cancer Screening Pa p with HPV Testing (Age 30 to 64) Every 5 Years 11/18/2022 11/18/2017 Cervical Cancer Screening with HPV 11/18/2022 COVID-19 Vaccine (2024-2 6 season) 2025 Influenza Adult (#1) 2025 Hepatitis A Vaccines Aged Out No long er eligible based on patient's age to complete this topic Meningococcal B Vaccine Aged Out No l onger eligible based on patient's age to complete this topic Meningococcal Vaccine Aged Out No vinny yusef eligible based on patient's age to complete this topic Pneumococcal Vaccine: Pediat rics (0 to 5 Years) and At-Risk Patients (6 to 49 Years) Aged Out No longer eligi ble based on patient's age to complete this topic RSV Immunizations Under 20 Months Aged Out No longer eligible based on patient's age to complete this topic Insurance [id number] Care Teams Chef Relationship Specialty Start Date End Date Cedric Dowd MD [address] [place] [address] PCP - General INTERNAL MEDICINE 12/28/20
== END 2025-09-25 07:57 | disposition home or self-care (01) ==
PROVIDERS: PCP Internal Medicine; Visit Provider Obstetrics & Gynecology Gynecology
DX: Z12.31 Encounter for screening mammogram for malignant neoplasm of breast (principal)
CPT/HCPCS: 77063; 77067